=== PATIENT | male | born 1955 | race American Indian/Alaskan Native ===

== ENCOUNTER 2017-04-16 00:28 | Emergency (ER) | payer OTHER ==
[2017-04-16 02:17] LABS: Basophils % (Auto) 0.2 % (0.0-1.8); Eosinophils % (Auto) 1.9 % (0.0-4.3); Hematocrit 41.9 % (35.5-45.6); Hemoglobin 14.2 gm/dl (11.8-15.2); Mean Corpuscular HGB Conc 34 % (32-34); Mean Corpuscular Hemoglobin 30 pg (28-32); Mean Corpuscular Volume 88 fl (84-94); Platelet Count 214 K/mm3 (140-440); Red Blood Count 4.75 M/mm3 (3.65-5.03); Red Cell Distribution Width 16.3 % (13.2-15.2); White Blood Count 6.3 K/mm3 (4.5-11.0)
[2017-04-16 02:38] LABS: Anion Gap 19 mmol/L; Blood Urea Nitrogen 15 mg/dL (9-20); Carbon Dioxide 26 mmol/L (22-30); Chloride 100.1 mmol/L (98-107); Glucose 136 mg/dL (75-100); Potassium 3.6 mmol/L (3.6-5.0); Sodium 141 mmol/L (137-145)
--- NOTE | 2017-04-16 09:33 | XRay Report ---
Left forearm 2 views: History: Pain and swelling. Findings: No fracture, periosteal reaction or lytic lesion. Impression: Essentially negative radius and ulna.
--- NOTE | 2017-04-16 09:34 | XRay Report ---
Left hand 2 views: History: Pain and swelling. Findings: No articular abnormality. No dislocation fracture or periosteal reaction. No soft tissue calcification. Impression: Essentially negative left hand.
[2017-04-16] MEDS ORDERED: DECADRON IV ONE (11:18)
[2017-04-16] MEDS ORDERED: BENADRYL IV ONE (11:18)
[2017-04-16] MEDS ORDERED: ceFAZolin 2 GM in NACL 0.9% 100 ML IV ONE (11:18)
[2017-04-16] MEDS ORDERED: PEPCID IV ONE (11:18)
--- NOTE | 2017-04-16 13:50 | Emergency Department Report ---
ED General Adult HPI - General Chief complaint: Extremity Injury, Upper Stated complaint: SWOLLEN L. HAND Time Seen by Provider: 04/16/17 10:21 Source: patient Mode of arrival: Ambulatory Limitations: No Limitations - History of Present Illness Initial comments: Patient was apparently stung by a yellow jacket just shortly prior to arrival. He complains of swelling of his hand and not elsewhere. He believes to stinger is still in the dorsum of the hand. He's had no breathing difficulty. Has no prior history of allergic reaction. -: Sudden Location: left, upper extremity Radiation: non-radiation Severity scale (0 -10): 7 Quality: burning Consistency: constant Improves with: none Associated Symptoms: denies other symptoms Treatments Prior to Arrival: none - Related Data Home Medications Medication Instructions Recorded Confirmed Last Taken ALBUTEROL Inhaler 2 puff IH BID 04/16/17 04/16/17 Unknown Previous Rx's Medication Instructions Recorded Last Taken Type Sulfamethoxazole/Trimethoprim 1 each PO BID #10 tablet 04/16/17 Unknown Rx [Bactrim DS TAB] Allergies Allergy/AdvReac Type Severity Reaction Status Date / Time No Known Allergies Allergy Unverified 04/16/17 01:28 ED Review of Systems ROS: Stated complaint: SWOLLEN L. HAND Other details as noted in HPI Constitutional: denies: chills, fever Eyes: denies: eye pain, eye discharge, vision change ENT: denies: ear pain, throat pain Respiratory: denies: cough, shortness of breath, wheezing Cardiovascular: denies: chest pain, palpitations Endocrine: no symptoms reported Gastrointestinal: denies: abdominal pain, nausea, diarrhea Genitourinary: denies: urgency, dysuria Musculoskeletal: denies: back pain, joint swelling, arthralgia Skin: as per HPI. denies: lesions Neurological: denies: headache, weakness, paresthesias Psychiatric: denies: anxiety, depression Hematological/Lymphatic: denies: easy bleeding, easy bruising ED Past Medical Hx - Past Medical History Hx Diabetes: Yes Hx Asthma: Yes - Surgical History Past Surgical History?: No - Social History Smoking Status: Current Every Day Smoker Substance Use Type: None - Medications Home Medications: Home Medications Medication Instructions Recorded Confirmed Last Taken Type ALBUTEROL Inhaler 2 puff IH BID 04/16/17 04/16/17 Unknown History Sulfamethoxazole/Trimethoprim 1 each PO BID #10 tablet 04/16/17 Unknown Rx [Bactrim DS TAB] ED Physical Exam - General Limitations: No Limitations General appearance: alert, in no apparent distress - Head Head exam: Present: atraumatic, normocephalic - Eye Eye exam: Present: normal appearance - ENT ENT exam: Present: normal exam, normal orophraynx, mucous membranes moist - Neck Neck exam: Present: normal inspection - Respiratory Respiratory exam: Present: normal lung sounds bilaterally. Absent: respiratory distress - Cardiovascular Cardiovascular Exam: Present: regular rate, normal rhythm. Absent: systolic murmur, diastolic murmur, rubs, gallop - GI/Abdominal GI/Abdominal exam: Present: soft, normal bowel sounds. Absent: distended, tenderness, guarding, rebound - Rectal Rectal exam: Present: deferred - Extremities Exam Extremities exam: Present: other (2+ edema of the dorsum of the left hand. Stinger is noted.) - Back Exam Back exam: Present: normal inspection - Neurological Exam Neurological exam: Present: alert, oriented X3, CN II-XII intact. Absent: motor sensory deficit - Psychiatric Psychiatric exam: Present: normal affect, normal mood - Skin Skin exam: Present: warm, dry, intact, normal color. Absent: rash ED Course Vital Signs 04/16/17 04/16/17 04/16/17 00:34 01:16 10:00 Temperature 98.1 F 98.1 F 97.9 F Pulse Rate 94 H 94 H 68 Respiratory 20 18 17 Rate Blood Pressure 112/79 112/79 Blood Pressure 112/79 120/68 [Left] O2 Sat by Pulse 97 96 100 Oximetry 04/16/17 04/16/17 04/16/17 10:34 10:46 11:00 Temperature Pulse Rate 64 64 63 Respiratory 17 12 11 L Rate Blood Pressure 124/80 113/75 Blood Pressure [Left] O2 Sat by Pulse 100 99 97 Oximetry 04/16/17 04/16/17 04/16/17 11:15 11:31 11:45 Temperature Pulse Rate 64 65 66 Respiratory 10 L 12 12 Rate Blood Pressure 113/75 113/75 113/75 Blood Pressure [Left] O2 Sat by Pulse 100 98 98 Oximetry 04/16/17 04/16/17 12:01 12:15 Temperature Pulse Rate 69 66 Respiratory 13 19 Rate Blood Pressure 121/84 121/84 Blood Pressure [Left] O2 Sat by Pulse 100 95 Oximetry - Reevaluation(s) Reevaluation #1: 04/16/17 13:49 Patient was given Decadron Benadryl and Pepcid. He was observed for some time. His hand edema receded somewhat. He never developed any systemic signs of toxicity ED Medical Decision Making - Lab Data Result diagrams: 04/16/17 01:58 04/16/17 01:58 Laboratory Results - last 24 hr 04/16/17 04/16/17 04/16/17 01:24 01:58 01:58 WBC 6.3 RBC 4.75 Hgb 14.2 Hct 41.9 MCV 88 MCH 30 MCHC 34 RDW 16.3 H Plt Count 214 Lymph % (Auto) 18.5 Rowan % (Auto) 6.6 Eos % (Auto) 1.9 Baso % (Auto) 0.2 Lymph # 1.2 Rowan # 0.4 Eos # 0.1 Baso # 0.0 Seg Neutrophils % 72.8 H Seg Neutrophils # 4.6 Sodium 141 Potassium 3.6 Chloride 100.1 Carbon Dioxide 26 Anion Gap 19 BUN 15 Creatinine 1.2 Estimated GFR > 60 BUN/Creatinine Ratio 12.50 Glucose 136 H POC Glucose 191 H Calcium 9.0 Critical care attestation.: If time is entered above; I have spent that time in minutes in the direct care of this critically ill patient, excluding procedure time. ED Disposition Clinical Impression: Hymenoptera sting Qualifiers: Encounter type: initial encounter Injury intent: accidental or unintentional Qualified Code(s): T63.481A - Toxic effect of venom of other arthropod, accidental (unintentional), initial encounter Local reaction to bee sting Qualifiers: Encounter type: initial encounter Injury intent: accidental or unintentional Qualified Code(s): T63.441A - Toxic effect of venom of bees, accidental ( unintentional), initial encounter Disposition: DC-01 TO HOME OR SELFCARE Is pt being admited?: No Does the pt Need Aspirin: No Condition: Stable Instructions: Insect Bite or Sting (ED), Cellulitis (ED) Additional Instructions: I would recommend that you wait until tomorrow before starting antibiotic. There is redness begin antibiotic. Return any fever or significant swelling or acute change or problems or if you have any breathing difficulty. Continue Benadryl [id number]. Prescriptions: Sulfamethoxazole/Trimethoprim [Bactrim DS TAB] 1 each PO BID #10 tablet Referrals: CESARIO GUNTER MD [Primary Care Provider] - 3-5 Days Time of Disposition: 13:52
[2017-04-16 14:06] VITALS: BP 126/76
== END 2017-04-16 14:07 | disposition home or self-care (01) ==
LOC: ED 00:28
DX: T63.481A Toxic effect of venom of other arthropod, accidental (unintentional), initial encounter (principal); T63.441A Toxic effect of venom of bees, accidental (unintentional), initial encounter; E11.9 Type 2 diabetes mellitus without complications; J45.909 Unspecified asthma, uncomplicated; F17.200 Nicotine dependence, unspecified, uncomplicated; W57.XXXA Bitten or stung by nonvenomous insect and other nonvenomous arthropods, initial encounter; Y93.9 Activity, unspecified; Y92.9 Unspecified place or not applicable; Y99.9 Unspecified external cause status
CPT/HCPCS: 36415; 73090; 73120; 80048; 82962; 85025; 87040; 96365; 96375; 99284; J0690; J1100; J1200